=== PATIENT | female | born 1965 | race Caucasian/White ===

== ENCOUNTER 2019-09-27 07:01 | Day surgery (SDC) | payer BC ==
--- OUTSIDE RECORDS SUMMARY | 2019-09-27 07:03 | XMS REPORT ---
:1965 [facility] Address [address] [place] [address] [address]. [address]. [address] [place] [address] Care Team Providers Name Role Phone Unavailable Unavailable Unavailable Payers Payer Name Policy Type Policy Number Effective Date Expiration Date Problems This patient has no known problems. Allergies, Adverse Reactions, Alerts Allergy Name Allergy Status Severity Reaction(s) Onset Inactive Treating Comments Type Date Date Clinician meperidine DA Active MO 2019-04 00:00:0 0 meperidine DA Active MO 2014-03 00:00:0 0 Medications This patient has no known medications. Results Test Description Test Time Test Comments Text Results Atomic Results Result Comments - XR FLUORO NDL 2019-04-28 09:18:00 Patient Name: YENIFER MERINO Unit No: [id number] EXAMS: CPT CODE: [id number] XR FLUORO NDL 42631 Fluoroscopically guided injection of the right trochanteric bursa with steroid and Marcaine COMPARISON: No prior exams available. FINDINGS: After informed consent was obtained a needle was placed in the right trochanteric bursa with fluoroscopic guidance. Its position was confirmed by injecting Isovue 300 and obtaining an AP radiograph. Subsequently 2 mL of Kenalog 40 mg per cc and 4 mL of Marcaine was injected. No immediate complications were encountered. 27 seconds of fluoroscopy time was utilized. IMPRESSION: Technically successful steroid/ Marcaine injection of the right trochanteric bursa at 0918 Reported and signed by: Trev Hudson M.D. CC: Ligia Leung MD Technologist: Malini Escobedo RT.(R) Transcribed D/ (917) CarmenJ [facility] NAME: YENIFER MERINO [address] [facility] [address] PHYS: Ligia Muñoz : 1965 AGE: 53 SEX: F [place] [address] LOC: Y.RAD PHONE #: [phone] EXAM DATE: 04/25/2019 STATUS: DEP CLI FAX #: [phone] RAD #: D/C DT PAGE 1 Signed Report Patient Name: YENIFER MERINO Unit No: [id number] EXAMS: CPT CODE: [id number] XR FLUORO NDL 54432 <Continued> Orig Print D/T: S: 04/28/2019 (920) [facility] NAME: YENIFER MERINO [address] [facility] [address] PHYS: Ligia Muñoz : 1965 AGE: 53 SEX: F [place] [address] LOC: Y.RAD PHONE #: [phone] EXAM DATE: 04/25/2019 STATUS: DEP CLI FAX #: [phone] RAD #: D/C DT PAGE 2 Signed Report - DUP VEIN UNI/LTD 2019-04-20 16:25:00 Patient Name: YENIFER MERINO Unit No: [id number] EXAMS: CPT CODE: [id number] DUP VEIN UNI/LTD 42253 RIGHT LOWER EXTREMITY VENOUS DOPPLER DIAGNOSIS: No evidence for deep venous thrombosis from the groin to the popliteal fossa. The anterior and posterior tibial veins are patent in the calf and the posterior tibial vein is patent at the ankle. COMMENT: COMPARISON: No prior exams available. Multiple real-time, color and duplex Doppler images were obtained. In the areas described no echogenic thrombus was seen. Normal compressibility, augmentation and spontaneous color-flow are observed. at 1625 Reported and signed by: Kenton Velasquez MD CC: Luis Oliver MD Technologist: SALVATORE SKY RDMS, RVT Transcribed D/ (7570) Tiff [facility] NAME: YENIFER MERINO [address] [facility] PHYS: Luis Butler : 1965 AGE: 53 SEX: F [place] [address] LOC: DENZEL PHONE #: [phone] EXAM DATE: 04/20/2019 STATUS: REG CLI FAX #: [phone] RAD #: D/C DT PAGE 1 Signed Report Patient Name: YENIFER MERINO Unit No: [id number] EXAMS: CPT CODE: [id number] [facility] UNI/LTD [address]75 <Continued> Orig Print D/T: S: 04/20/2019 (7072) [facility] NAME: YENIFER MERINO [address] [facility] PHYS: Luis Butler : 1965 AGE: 53 SEX: F [place] [address] LOC: DENZEL PHONE #: [phone] EXAM DATE: 04/20/2019 STATUS: REG CLI FAX #: [phone] RAD #: D/C DT PAGE 2 Signed Report
[2019-09-27] MEDS ORDERED: Ringers Lactate 1,000 ML IV ONE (07:43)
[2019-09-27] MEDS ORDERED: LIDOCAINE 1% MPF 5 ML VIAL ONE (09:32)
[2019-09-27] MEDS ORDERED: propofoL 200 MG/20 ML VIAL IV ONE ×2 (09:32)
--- NOTE | 2019-09-27 10:00 | ENDO RPT ---
[address], [address] COLONOSCOPY PROCEDURE REPORT EXAM DATE: 09/27/2019 PATIENT NAME: Nhi Taylor MR #: [id number] BIRTHDATE: 1965 ATTENDING: Loco Krishna Dr STATUS: outpatient SPECIAL EDUCATION RESOURCE ROOM TEACHER: Josephine Bose RN, Adali Holman RN, and Gracie Rendon INDICATIONS: The patient is a 54 yr old Female here for a colonoscopy due to hemoccult positive stools and hematochezia PROCEDURE PERFORMED: Colonoscopy with biopsy - cold polypectomy MEDICATIONS: Per Anesthesia. ESTIMATED BLOOD LOSS: None CONSENT: The patient understands the risks and benefits of the procedure and understands that these risks include, but are not limited to: sedation, allergic reaction, infection, perforation and/or bleeding. Alternative means of evaluation and treatment include, among others: physical exam, x-rays, and/or surgical intervention. The patient elects to proceed with this endoscopic procedure. DESCRIPTION OF PROCEDURE: During intra-op preparation period all mechanical medical equipment was checked for proper function. Hand hygiene and appropriate measures for infection prevention was taken. Procedure, possible complications, alternatives including, but not limited to possibility of bleeding, perforation, tear, infection, sepsis, need for surgery, need for blood transfusion, were explained to the patient. After the risks, benefits and alternatives of the procedure were thoroughly explained, Informed consent was verified, confirmed and timeout was successfully executed by the treatment team. The patient was placed in the left lateral position. A digital rectal exam was performed and revealed several skin tags. After appropriate level of anesthesia, the scope was passed. The EG-[id number] ([id number]) and EC-[id number] ([id number]) endoscope was introduced through the anus and advanced to the cecum. The quality of the prep was good. The instrument was then slowly withdrawn as the colon was fully examined. Scope withdrawal time was 7 minutes. COLON FINDINGS: A smooth sessile polyp measuring 3 mm in size was found in the sigmoid colon. A polypectomy was performed with cold forceps. Moderate sized internal hemorrhoids were found. Retroflexed views revealed no abnormalities. The scope was then completely withdrawn from the patient and the procedure terminated. ADVERSE EVENTS: There were no complications. IMPRESSIONS: 1. 3 mm sessile polyp in the sigmoid colon; polypectomy was performed with cold forceps 2. Moderate sized internal hemorrhoids 3. Intubation to cecum RECOMMENDATIONS: 1. await biopsy results 2. avoid NSAIDS for 2 weeks RECALL: Return in 3 year(s) for Colonoscopy. Loco Krishna Dr eSigned: Loco Krishna Dr 09/27/2019 10:00 AM cc: Emy Paiz and Luisito Goetz CPT CODES: ICD9 CODES: 1. 455.9 Residual hemorrhoidal skin tags 2. 211.3 Benign neoplasm of colon PATIENT NAME: Nhi Taylor MR#: [id number]
[2019-09-27 10:13] VITALS: O2SAT 98
[2019-09-27 10:25] VITALS: BP 136/76; TEMP 97.7
== END 2019-09-27 10:41 | disposition home or self-care (01) ==
LOC: OR 07:01
PROVIDERS: ATTEND Internal Medicine Gastroenterology
PROC: 0DBN8ZX Excision of Sigmoid Colon, Via Natural or Artificial Opening Endoscopic, Diagnostic (ICD-10-PCS; principal; 2019-09-27 10:15)
DX: K63.5 Polyp of colon (principal); K64.8 Other hemorrhoids; G47.33 Obstructive sleep apnea (adult) (pediatric); E66.01 Morbid (severe) obesity due to excess calories; Z68.43 Body mass index [BMI] 50.0-59.9, adult; Z88.6 Allergy status to analgesic agent
CPT/HCPCS: 88305; 45380; J2704 ×2; J7120

== ENCOUNTER 2023-12-30 05:55 | Day surgery (SDC) | payer BC ==
[2023-12-29 16:03] LABS: Absolute Basophils 0.1 K/uL (0-0.5); Absolute Eosinophils 0.1 K/uL (0-0.5); Absolute Lymphocytes (CBC) 3.5 K/uL (0.7-4.9); Absolute Monocytes 0.8 K/uL (0.1-1.3); Absolute Neutrophil 6.5 K/uL (1.8-8.0); Eosinophils % 0.7 % (0-4.4); Hematocrit 41.3 % (36.0-45.0); Lymphocytes % 32.1 % (15.3-44.8); MCH 27.7 pg (27.0-35.0); MCHC 31.4 g/dL (32.0-36.0); MCV 88.3 fL (80-100); MPV 8.1 fL (7.6-11.3); Monocytes % 7.2 % (3.3-12.3); Nucleated Red Blood Cells % 0.1 % (0-0); Platelets 371 thou/uL (152-406); RBC Red Blood Cell Count 4.68 M/uL (3.86-4.86); Red Cell Distribution Width 17.1 % (12.1-15.2)
[2023-12-30] MEDS ORDERED: CEFAZOLIN SODIUM 2 GM/VIAL ONE (06:13)
[2023-12-30] MEDS ORDERED: CEFAZOLIN SODIUM 1 GM/VIAL ONE (06:13)
[2023-12-30] MEDS: HEPARIN 5000 UNIT/ML 1 ML VIAL ONE (06:20)
[2023-12-30] MEDS: SCOPOLAMINE HYDROBROMIDE PATCH TD ONE (06:21)
[2023-12-30] MEDS: Ringers Lactate 1,000 ML IV ONE (06:30)
[2023-12-30] MEDS ORDERED: dexAMETHasone 10 MG/ML VIAL ONE (06:37)
[2023-12-30] MEDS ORDERED: ONDANSETRON 4 MG/2 ML VIAL ONE (06:37)
[2023-12-30] MEDS ORDERED: FENTANYL CITR 100 MCG/2 ML ONE (06:37)
[2023-12-30] MEDS ORDERED: ROCURONIUM 50 MG/5 ML VIAL IV ONE (06:37)
[2023-12-30] MEDS ORDERED: LIDOCAINE 1% MPF 5 ML VIAL ONE (06:37)
[2023-12-30] MEDS ORDERED: propofoL 200 MG/20 ML VIAL IV ONE (06:37)
[2023-12-30] MEDS ORDERED: MIDAZOLAM HCL 2 MG/2 ML INJ ONE (06:38)
[2023-12-30] MEDS: LIDOCAINE HCL/EPINEPHRINE 20 ML MDV ONE (07:50)
[2023-12-30] MEDS ORDERED: LIDOCAINE HCL/EPINEPHRINE 20 ML MDV ONE (08:08)
[2023-12-30] MEDS ORDERED: Mastisol Adhesive Liq ONE (09:18)
[2023-12-30] MEDS: HYDROCODONE/APAP 7.5/325 MG TAB ONE (10:30)
--- NOTE | 2023-12-30 11:10 | P.BOP ---
Preoperative diagnosis: urinary urge incontinence, fecal incontinence Postoperative diagnosis: urinary urge incontinence, fecal incontinence Primary procedure: SNM stage 1@2 Buffing And Polishing Wheel Repairer: NONE,NONE (surgeon Dr. Paiz) Estimated blood loss: minimal Findings: Implant lead in right S4, right buttock pocket for modulator/battery. Anesthesia: General Complications: None Implants: sacroneuromodulator Transferred to: Recovery Room Condition: Good
--- NOTE | 2023-12-30 11:31 | RAD REPORT ---
EXAM DESCRIPTION: RAD - Fluoroscopy <1 Hour - 12/30/2023 10:15 am CLINICAL HISTORY: Sacral neural modulation FINDINGS: Sacral neural modulation performed The examination was performed by Fluoroscopy time 2.8 minutes. Thirty-two fluoroscopic spot images obtained
[2023-12-30 12:03] VITALS: BP 148/72; TEMP 97; O2SAT 100
--- NOTE | 2023-12-30 14:02 | EKG ---
Test Date: 2023-12-29 Test Time: 15:28:17 Knurling Machine Operator: BRENNON MEASUREMENT RESULTS: Intervals: Rate: 75 WY: 174 QRSD: 78 QT: 372 QTc: 415 [place]: P: 66 WY: 174 QRS: 29 T: -11 INTERPRETIVE STATEMENTS: Normal sinus rhythm Low voltage QRS Nonspecific T wave abnormality Abnormal ECG No previous ECG available for comparison Electronically Signed On 12-30-23 13:59:41 CDT by Hema Alejandro
== END 2023-12-30 11:20 | disposition home or self-care (01) ==
LOC: OR 05:55
PROVIDERS: ATTEND Obstetrics & Gynecology
PROC: 01HY3MZ Insertion of Neurostimulator Lead into Peripheral Nerve, Percutaneous Approach (ICD-10-PCS; principal; 2023-12-30 07:00)
PROC: 0JH73BZ Insertion of Single Array Stimulator Generator into Back Subcutaneous Tissue and Fascia, Percutaneous Approach (ICD-10-PCS; 2023-12-30 07:00)
DX: N39.41 Urge incontinence (principal); E66.01 Morbid (severe) obesity due to excess calories; R15.9 Full incontinence of feces; N32.81 Overactive bladder; Z68.42 Body mass index [BMI] 45.0-49.9, adult; Z86.718 Personal history of other venous thrombosis and embolism
CPT/HCPCS: 93005; 85025; 80048; 36415; 76000; 64561; 64590; J1644; J2704; J2001; J2250; J3010; J1100; J2405; J7120; J0690; C1778; C1767